=== PATIENT | female | born 1965 | race Caucasian/White ===

== ENCOUNTER 2016-07-22 14:09 | Emergency (ER) | payer SELFPAY ==
[2016-07-22 14:16] VITALS: BP 135/75
--- NOTE | 2016-07-22 14:32 | ER Document Report ---
ED Medical Screen (RME) - General Stated Complaint: LOWER BACK PAIN Notes: Patient complains of lower back pain that is radiating down both legs for 4 days. Has a history of back pain intermittently. Denies known injury, but states she was working around the house, and has 2 large dogs which he walks. No bowel or bladder dysfunction. I have greeted and performed a rapid initial assessment of this patient. A comprehensive ED assessment and evaluation of the patient, analysis of test results and completion of the medical decision making process will be conducted by additional ED providers. TRAVEL OUTSIDE OF THE [place] IN LAST 30 DAYS: No - Related Data Allergies/Adverse Reactions: prochlorperazine [From Compazine] Allergy (Verified 04/15/16 10:45) Past Medical History Neurological Medical History: Reports: Hx Migraine GI Medical History: Reports: Hx Colonoscopy Musculoskeltal Medical History: Reports Hx Arthritis, Reports Hx Musculoskeletal Trauma - Fractured left arm Psychiatric Medical History: Reports: Hx Anxiety Traumatic Medical History: Reports: Hx Fractures - Left arm Past Surgical History: Reports: Hx Gynecologic Surgery - Uterine ablation, Hx Oral Surgery - [place] teeth, Hx Orthopedic Surgery - Multiple foot surgeries, Other - Multiple eye surgeries - Immunizations Immunizations up to date: Yes Hx Diphtheria, Pertussis, Tetanus Vaccination: Yes Physical Exam - Vital signs Vitals: Temp Pulse Resp BP Pulse Ox 98.4 F 73 14 135/75 H 100 07/22/16 14:15 07/22/16 14:15 07/22/16 14:15 07/22/16 14:15 07/22/16 14:15 - Back Notes: Patient has lumbar vertebral tenderness, and pain over bilateral lumbar muscles. Course - Vital Signs Vital signs: Temp Pulse Resp BP Pulse Ox 98.4 F 73 14 135/75 H 100 07/22/16 14:15 07/22/16 14:15 07/22/16 14:15 07/22/16 14:15 07/22/16 14:15
--- NOTE | 2016-07-22 15:29 | ER Document Report ---
HPI - HPI Patient complains to provider of: low back pain Onset: Other - 5 days Onset/Duration: Gradual Quality of pain: Achy Pain Level: 3 Context: 50-year-old female with a history of low back pain started having pain again for 5 days. She does not work outside the home but it is more uncomfortable when she moves and does housework. No fever or chills. No saddle anesthesia. It does radiate into her buttock some both sides. Associated Symptoms: None Exacerbated by: Movement Relieved by: Denies Similar symptoms previously: Yes Recently seen / treated by doctor: No - ROS ROS below otherwise negative: Yes Systems Reviewed and Negative: Yes All other systems reviewed and negative - DERM Skin Color: Normal Past Medical History - General Information source: Patient - Social History Smoking Status: Never Smoker Chew tobacco use (# tins/day): No Frequency of alcohol use: None Drug Abuse: None Lives with: Family Family History: Reviewed & Not Pertinent Patient has suicidal ideation: No Patient has homicidal ideation: No Neurological Medical History: Reports: Hx Migraine Renal/ Medical History: Denies: Hx Peritoneal Dialysis GI Medical History: Reports: Hx Colonoscopy Musculoskeltal Medical History: Reports Hx Arthritis, Reports Hx Musculoskeletal Trauma - Fractured left arm Psychiatric Medical History: Reports: Hx Anxiety Traumatic Medical History: Reports: Hx Fractures - Left arm Past Surgical History: Reports: Hx Gynecologic Surgery - Uterine ablation, Hx Oral Surgery - [place] teeth, Hx Orthopedic Surgery - Multiple foot surgeries, Other - Multiple eye surgeries - Immunizations Immunizations up to date: Yes Hx Diphtheria, Pertussis, Tetanus Vaccination: Yes Vertical Provider Document - CONSTITUTIONAL Agree With Documented VS: Yes Exam Limitations: No Limitations - INFECTION CONTROL TRAVEL OUTSIDE OF THE [place] IN LAST 30 DAYS: No - HEENT HEENT: Normocephalic - NECK Neck: Supple - RESPIRATORY Respiratory: Breath Sounds Normal, No Respiratory Distress O2 Sat by Pulse Oximetry: 100 - CARDIOVASCULAR Cardiovascular: Regular Rate, Regular Rhythm - GI/ABDOMEN Gastrointestinal: Abdomen Soft, Abdomen Non-Tender, No Organomegaly - BACK Back: Normal Inspection. negative: CVA Tenderness-Right, CVA Tenderness-Left - MUSCULOSKELETAL/EXTREMETIES Musculoskeletal/Extremeties: MAEW, FROM, Non-Tender - NEURO Level of Consciousness: Awake, Alert Motor/Sensory: No Motor Deficit, No Sensory Deficit Deep Tendon Reflexes: 2+ - Bilateral ankle and patellar - DERM Integumentary: Warm, Dry, No Rash Course - Vital Signs Vital signs: Temp Pulse Resp BP Pulse Ox 98.4 F 73 14 135/75 H 100 07/22/16 14:15 07/22/16 14:15 07/22/16 14:15 07/22/16 14:15 07/22/16 14:15 Discharge - Discharge Clinical Impression: low back pain Condition: Good Disposition: HOME, SELF-CARE Instructions: Low Back Pain (OM), Warm Packs (OM), Ultram ([facility]), Muscle Relaxers ([facility]) Additional Instructions: Return to the emergency room while you're a visiting if worse warm compress Please complete the patient satisfaction survey if you get one, and return it.. If you do not receive a survey, then you can go to the [facility] website, [email or web address] and place your comments about your very good care. Thank you very much. It was a pleasure being your medical provider today. Prescriptions: Cyclobenzaprine HCl [Flexeril 10 Mg Tablet] 10 mg PO TIDP PRN #20 tablet PRN Reason: Tramadol HCl [Ultram 50 mg Tablet] 50 mg PO ASDIR PRN #20 tablet PRN Reason:
== END 2016-07-22 15:50 | disposition home or self-care (01) ==
LOC: ER 14:09
DX: M54.5 Low back pain (principal)
CPT/HCPCS: 99283